=== PATIENT | female | born 1940 | race African-American/Black ===

== ENCOUNTER 2017-08-18 15:37 | Inpatient (IN) | payer MEDICARE, MEDICAID ==
[~2017-08-18] VITALS: Ht 160 cm; Wt 55.9 kg
[2017-08-18] MEDS ORDERED: LISI-186 PO (15:44)
[2017-08-18] MEDS ORDERED: METF500T4 PO (15:44)
[2017-08-18] MEDS ORDERED: GLIP5TAB12 PO (15:44)
[2017-08-18] MEDS ORDERED: SODIUM CHLORIDE 0.9% 1,000 ML IV ONE (15:54)
[2017-08-18] MEDS ORDERED: MORPHINE SULFATE 2 MG/ML CPJ (NOT FOR IM USE) IV ONE ×2 (16:00→20:45)
[2017-08-18] MEDS ORDERED: ONDANSETRON HCL 4MG/2ML VIAL IV ONE ×2 (16:00→21:00)
[2017-08-18 16:22] LABS: BASOPHILS % 0.6 % (0.0-2.0); EOSINOPHILS % 1.8 % (0.0-5.0); LYMPHOCYTES % 28.7 % (20.0-50.0); MEAN CORPUSCULAR HEMOGLOBIN 31.1 pg (28.0-32.0); MEAN CORPUSCULAR VOLUME 85.9 fL (81.0-99.0); MONOCYTES % 10.9 % (2.0-8.0); PLATELET 310 x1000/uL (130-400); RED BLOOD CELL COUNT 4.19 mill/uL (4.2-5.4); RED CELL DISTRIBUTION WIDTH 15.1 % (11.6-14.6)
[2017-08-18 16:24] LABS: CHLORIDE 88 mEq/L (98-107)
[2017-08-18 16:26] LABS: INR 1.1; PROTHROMBIN TIME 11.8 sec (9.4-11.6)
[2017-08-18 16:28] LABS: ETHANOL BLOOD < 10 mg/dL
[2017-08-18] MEDS ORDERED: MORPHINE SULFATE 4 MG/ML CPJ (NOT FOR IM USE) IV NR ×2 (17:00→21:15)
[2017-08-18 18:46] LABS: CLARITY URINE CLEAR (CLEAR); COLOR URINE YELLOW (YELLOW); KETONES URINE TRACE (NEGATIVE); LEUKOCYTE ESTERASE URINE 2+ (NEGATIVE); NITRITE URINE NEGATIVE (NEGATIVE); OCCULT BLOOD URINE NEGATIVE (NEGATIVE); PROTEIN URINE NEGATIVE (NEGATIVE); SPECIFIC GRAVITY URINE 1.017 (1.005-1.030)
[2017-08-18] MEDS ORDERED: ACETAMINOPHEN 325MG TABLET PO ONE (19:00)
[2017-08-18 19:04] LABS: *AMPHETAMINES SCREEN URINE NEGATIVE (NEGATIVE); *BARBITURATES SCREEN URINE NEGATIVE (NEGATIVE); *BENZODIAZEPINES SCREEN URINE NEGATIVE (NEGATIVE); *COCAINE SCREEN URINE NEGATIVE (NEGATIVE); METHADONE URINE SCREEN NEGATIVE (NEGATIVE); OPIATES URINE SCREEN NEGATIVE (NEGATIVE)
[2017-08-18 19:05] LABS: CANNABINOID URINE SCREEN NEGATIVE (NEGATIVE); PHENCYCLIDINE URINE SCREEN NEGATIVE (NEGATIVE)
[2017-08-18] MEDS ORDERED: LEVOFLOXACIN 750MG PREMIX 150 ML IV ONE (19:15)
[2017-08-18] MEDS ORDERED: POTASSIUM CHLORIDE 20MEQ TABLET SR PO ONE (19:30)
[2017-08-18] MEDS ORDERED: INSULIN REGULAR (HUMULIN R) 300UNITS/3ML SUBCUT ONE (19:30)
[2017-08-18] MEDS ORDERED: MAGNESIUM/ALUMINUM HYDROXIDE/SIMETHICONE 30ML UDC PO PRN (21:00)
[2017-08-18] MEDS ORDERED: ONDANSETRON HCL 4MG/2ML VIAL IV PRN (21:00)
[2017-08-18] MEDS ORDERED: LEVOFLOXACIN 500MG PREMIX 100 ML IV SCH (21:00)
[2017-08-18] MEDS ORDERED: DIPHENHYDRAMINE 50MG/ML VIAL IV PRN (21:00)
[2017-08-18] MEDS ORDERED: DEXTROSE 50% WATER 50ML SYRINGE IV PRN (21:00)
[2017-08-18] MEDS ORDERED: CLONIDINE 0.1MG TABLET PO PRN (21:00)
[2017-08-18 21:56] LABS: T4 FREE 0.57 ng/dL (0.76-1.46)
[2017-08-18 22:10] VITALS: BP 171/80
[2017-08-18] MEDS: BLOOD SUGAR DIAGNOSTIC STRIP TEST SCH (22:39)
[2017-08-18] MEDS: INSULIN LISPRO 100 UNITS/ML SUBCUT SCH (22:45)
[2017-08-18 23:00] VITALS: BP 171/80
[2017-08-18] MEDS: ACETAMINOPHEN 325MG TABLET PO PRN (23:19)
[2017-08-19] VITALS: BP 143/74
[2017-08-19] MEDS ORDERED: MAGNESIUM 2 G PREMIX 50 ML IV NR
[2017-08-19] MEDS ORDERED: THIAMINE HCL 100 MG in SODIUM CHLORIDE 0.9% 49 ML IV NR (02:00)
[2017-08-19] MEDS: SODIUM CHL 0.9% + KCL 20MEQ/L 1,000 ML IV SCH ×2 (02:05→10:00)
[2017-08-19 04:00] VITALS: BP 114/65
[2017-08-19 05:51] LABS: BASOPHILS % 0.4 % (0.0-2.0); EOSINOPHILS % 0.9 % (0.0-5.0); HEMATOCRIT. 36.1 % (36.0-48.0); HEMOGLOBIN. 12.5 g/dL (12.0-16.0); LYMPHOCYTES % 23.1 % (20.0-50.0); MEAN CORPUSCULAR HEMOGLOBIN 29.9 pg (28.0-32.0); MEAN CORPUSCULAR VOLUME 86.3 fL (81.0-99.0); MEAN PLATELET VOLUME 9.5 fl (7.4-10.4); MONOCYTES % 7.3 % (2.0-8.0); NEUTROPHILS % 68.3 % (40.0-76.0); PLATELET 287 x1000/uL (130-400); RED BLOOD CELL COUNT 4.19 mill/uL (4.2-5.4); RED CELL DISTRIBUTION WIDTH 15.1 % (11.6-14.6)
[2017-08-19 06:14] LABS: CHLORIDE 88 mEq/L (98-107)
[2017-08-19] MEDS: LEVOTHYROXINE SODIUM 100MCG TABLET PO SCH (06:41)
[2017-08-19] MEDS: BLOOD SUGAR DIAGNOSTIC STRIP TEST SCH ×4 (06:41→20:57)
[2017-08-19] MEDS: INSULIN LISPRO 100 UNITS/ML SUBCUT SCH ×4 (06:45→21:04)
[2017-08-19] MEDS ORDERED: LEVOTHYROXINE SODIUM 88MCG TABLET PO SCH (06:45)
[2017-08-19 08:00] VITALS: BP 121/58
[2017-08-19] MEDS: INSULIN GLARGINE UD 100 UNITS/ML SYR SUBCUT SCH (10:00)
[2017-08-19] MEDS ORDERED: MAGNESIUM 2 G PREMIX 50 ML IV SCH (11:00)
[2017-08-19] MEDS ORDERED: POTASSIUM CHLORIDE INJ 40 MEQ in DEXT 5% WATER 250 ML IV SCH (11:00)
[2017-08-19 12:00] VITALS: BP 117/61
[2017-08-19 15:05] LABS: PHOSPHORUS 2.7 mg/dL (2.5-4.9)
[2017-08-19 16:00] VITALS: BP 131/62
[2017-08-19] MEDS: SODIUM CHLORIDE 1000MG TABLET PO SCH (18:00)
[2017-08-19] MEDS ORDERED: LISI40TA4 PO (19:30)
[2017-08-19] MEDS ORDERED: METO-396 PO (19:30)
[2017-08-19] MEDS ORDERED: DILT240C92 PO ×2 (19:30)
[2017-08-19] MEDS ORDERED: GLIP5TAB12 PO (19:30)
[2017-08-19] MEDS ORDERED: PRAV80TA21 PO (19:30)
[2017-08-19] MEDS ORDERED: CHLO25TA27 PO (19:30)
[2017-08-19] MEDS ORDERED: METF10002 PO (19:30)
[2017-08-19] MEDS ORDERED: CHLO25TA27 GT (19:30)
[2017-08-19] MEDS ORDERED: ERGO500013 PO (19:30)
[2017-08-19] MEDS ORDERED: ASPI-1159 PO (19:30)
[2017-08-19] MEDS ORDERED: HYDR12.54 PO (19:30)
[2017-08-19 20:00] VITALS: BP 120/61
[2017-08-19] MEDS: LEVOFLOXACIN 250MG PREMIX 50 ML IV SCH (20:57)
[2017-08-20] VITALS: BP 95/47
[2017-08-20] MEDS: ACETAMINOPHEN 325MG TABLET PO PRN ×5 (00:04→22:53)
[2017-08-20 04:00] VITALS: BP 109/54
[2017-08-20] MEDS: INSULIN LISPRO 100 UNITS/ML SUBCUT SCH ×4 (06:16→22:15)
[2017-08-20] MEDS: BLOOD SUGAR DIAGNOSTIC STRIP TEST SCH ×4 (06:16→21:20)
[2017-08-20] MEDS: LEVOTHYROXINE SODIUM 100MCG TABLET PO SCH (06:16)
[2017-08-20] MEDS: SODIUM CHL 0.9% + KCL 20MEQ/L 1,000 ML IV SCH ×2 (06:16→23:45)
[2017-08-20 07:55] LABS: CHLORIDE 95 mEq/L (98-107)
[2017-08-20 08:00] VITALS: BP 144/75
[2017-08-20] MEDS: SODIUM CHLORIDE 1000MG TABLET PO SCH ×3 (08:03→17:40)
[2017-08-20 08:05] LABS: PHOSPHORUS 2.2 mg/dL (2.5-4.9)
[2017-08-20] MEDS ORDERED: BRIM15DR2 EACHEYE (10:17)
[2017-08-20 12:00] VITALS: BP 149/66
[2017-08-20] MEDS: INSULIN GLARGINE UD 100 UNITS/ML SYR SUBCUT SCH (12:38)
[2017-08-20] MEDS ORDERED: MAGNESIUM 2 G PREMIX 50 ML IV NR (15:30)
[2017-08-20 16:00] VITALS: BP 148/73
[2017-08-20] MEDS ORDERED: POTASSIUM PHOS,M-BASIC-D-BASIC 30 MMOL in DEXT 5% WATER 500 ML IV NR (16:00)
[2017-08-20] MEDS: METFORMIN HCL 500MG TABLET PO SCH (17:40)
[2017-08-20] MEDS ORDERED: THIAMINE HCL 100 MG in SODIUM CHLORIDE 0.9% 49 ML IV NR (18:00)
[2017-08-20 20:00] VITALS: BP 127/57
[2017-08-20] MEDS: LEVOFLOXACIN 250MG PREMIX 50 ML IV SCH (21:19)
[2017-08-21] VITALS: BP 132/87
[2017-08-21] MEDS: ACETAMINOPHEN 325MG TABLET PO PRN ×4 (03:21→23:59)
[2017-08-21 04:00] VITALS: BP 137/71
[2017-08-21 05:51] LABS: BASOPHILS % 0.7 % (0.0-2.0); EOSINOPHILS % 3.4 % (0.0-5.0); HEMATOCRIT. 38.8 % (36.0-48.0); HEMOGLOBIN. 13.4 g/dL (12.0-16.0); LYMPHOCYTES % 36.3 % (20.0-50.0); MEAN CORPUSCULAR HEMOGLOBIN 30.1 pg (28.0-32.0); MEAN PLATELET VOLUME 9.2 fl (7.4-10.4); MONOCYTES % 10.3 % (2.0-8.0); NEUTROPHILS % 49.3 % (40.0-76.0); PLATELET 304 x1000/uL (130-400); RED BLOOD CELL COUNT 4.46 mill/uL (4.2-5.4); RED CELL DISTRIBUTION WIDTH 15.5 % (11.6-14.6)
[2017-08-21] MEDS: BLOOD SUGAR DIAGNOSTIC STRIP TEST SCH ×4 (06:03→21:00)
[2017-08-21] MEDS: METFORMIN HCL 500MG TABLET PO SCH ×2 (06:10→17:48)
[2017-08-21] MEDS: INSULIN LISPRO 100 UNITS/ML SUBCUT SCH ×4 (06:12→21:00)
[2017-08-21] MEDS: LEVOTHYROXINE SODIUM 100MCG TABLET PO SCH (06:26)
[2017-08-21 07:29] LABS: CHLORIDE 91 mEq/L (98-107)
[2017-08-21 07:34] LABS: PHOSPHORUS 3.8 mg/dL (2.5-4.9)
[2017-08-21 08:00] VITALS: BP 121/67
[2017-08-21] MEDS: SODIUM CHLORIDE 1000MG TABLET PO SCH ×3 (09:46→17:48)
[2017-08-21] MEDS: INSULIN GLARGINE UD 100 UNITS/ML SYR SUBCUT SCH (09:48)
[2017-08-21] MEDS ORDERED: LEVOFLOXACIN 250MG TABLET PO SCH (11:00)
[2017-08-21 12:00] VITALS: BP 134/77
[2017-08-21] MEDS ORDERED: MAGNESIUM 2 G PREMIX 50 ML IV SCH (13:00)
[2017-08-21 16:00] VITALS: BP 146/81
[2017-08-21 20:00] VITALS: BP_SYST 117; BP_SYST 173; BP_DIAS 59; BP_DIAS 90
[2017-08-21 20:38] LABS: AMMONIA 14 uMol/L (<32)
[2017-08-21 20:45] LABS: CREATINE KINASE 219 IU/L (26-192)
[2017-08-22] VITALS (7 sets, daily range): BP systolic 101–158; BP diastolic 65–88
[2017-08-22 06:04] LABS: BASOPHILS % 0.8 % (0.0-2.0); EOSINOPHILS % 3.5 % (0.0-5.0); HEMATOCRIT. 39.2 % (36.0-48.0); HEMOGLOBIN. 13.8 g/dL (12.0-16.0); LYMPHOCYTES % 42.9 % (20.0-50.0); MEAN CORPUSCULAR HEMOGLOBIN 30.6 pg (28.0-32.0); MEAN CORPUSCULAR VOLUME 87.2 fL (81.0-99.0); MEAN PLATELET VOLUME 9.2 fl (7.4-10.4); MONOCYTES % 10.8 % (2.0-8.0); PLATELET 302 x1000/uL (130-400); RED CELL DISTRIBUTION WIDTH 15.6 % (11.6-14.6)
[2017-08-22] MEDS: BLOOD SUGAR DIAGNOSTIC STRIP TEST SCH ×3 (06:45→16:45)
[2017-08-22 06:57] LABS: CHLORIDE 98 mEq/L (98-107)
[2017-08-22] MEDS: METFORMIN HCL 500MG TABLET PO SCH ×2 (06:59→18:20)
[2017-08-22] MEDS: LEVOTHYROXINE SODIUM 100MCG TABLET PO SCH (07:03)
[2017-08-22] MEDS: INSULIN LISPRO 100 UNITS/ML SUBCUT SCH ×3 (07:04→17:15)
[2017-08-22] MEDS ORDERED: THIAMINE HCL 100MG TABLET PO SCH (09:00)
[2017-08-22] MEDS: SODIUM CHLORIDE 1000MG TABLET PO SCH ×3 (09:30→18:20)
[2017-08-22] MEDS: ACETAMINOPHEN 325MG TABLET PO PRN (09:30)
[2017-08-22] MEDS: INSULIN GLARGINE UD 100 UNITS/ML SYR SUBCUT SCH (11:57)
== END 2017-08-22 20:33 | DRG 637 ==
LOC: ER 15:37 → 5WST 19:16 → EDBEDREQ 19:16 → EDBEDREQTM 19:16 → ENRESERV 20:17 → 5WST 22:36
PROVIDERS: ADMIT Internal Medicine; ATTEND Internal Medicine
DX: E11.65 Type 2 diabetes mellitus with hyperglycemia (principal); G93.40 Encephalopathy, unspecified; M62.82 Rhabdomyolysis; N39.0 Urinary tract infection, site not specified; E83.42 Hypomagnesemia; E87.1 Hypo-osmolality and hyponatremia; F10.10 Alcohol abuse, uncomplicated; E87.6 Hypokalemia; E03.9 Hypothyroidism, unspecified; F10.20 Alcohol dependence, uncomplicated; I10 Essential (primary) hypertension; Z82.49 Family history of ischemic heart disease and other diseases of the circulatory system; Z83.3 Family history of diabetes mellitus; Z79.899 Other long term (current) drug therapy; Z88.0 Allergy status to penicillin
CPT/HCPCS: 36415; 70450; 70551; 71045; 80048; 80053; 80305; 81003; 82140; 82550; 82962; 83036; 83735; 83880; 84100; 84439; 84443; 84481; 84484; 85025; 85610; 87040; 92523; 92610; 93005; 93970; 97116; 97162; 97166; 97530; G0482; J1200; J1815; J1956; J2270; J2405; J3411; J3475; J3480; J3490; J7030; J7050; J7060

== ENCOUNTER 2017-08-22 20:45 | Inpatient (IN) | payer MEDICARE, MEDICAID ==
[~2017-08-22] VITALS: Ht 160 cm; Wt 55.9 kg
[~2017-08-22 20:45] MED LIST: ASPI-1159 PO; BRIM15DR2 EACHEYE; CHLO25TA27 GT; CHLO25TA27 PO; DILT240C92 PO; ERGO500013 PO; GLIP5TAB12 PO; HYDR12.54 PO; LISI-186 PO; LISI40TA4 PO; METF10002 PO; METF500T4 PO; METO-396 PO; PRAV80TA21 PO
[2017-08-22 21:00] VITALS: BP 111/60
[2017-08-22] MEDS ORDERED: MAGNESIUM/ALUMINUM HYDROXIDE/SIMETHICONE 30ML UDC PO PRN (21:30)
[2017-08-22] MEDS ORDERED: CLONIDINE 0.1MG TABLET PO PRN (21:30)
[2017-08-22] MEDS ORDERED: DEXTROSE 50% WATER 50ML SYRINGE IV PRN (21:30)
[2017-08-22] MEDS: INSULIN LISPRO 100 UNITS/ML SUBCUT SCH (23:30)
[2017-08-22] MEDS: BLOOD SUGAR DIAGNOSTIC STRIP TEST SCH (23:45)
[2017-08-22] MEDS: ACETAMINOPHEN 325MG TABLET PO PRN (23:50)
[2017-08-23 04:07] VITALS: BP 111/60
[2017-08-23 06:39] LABS: EOSINOPHILS % 2.7 % (0.0-5.0); HEMATOCRIT. 39.4 % (36.0-48.0); HEMOGLOBIN. 13.6 g/dL (12.0-16.0); LYMPHOCYTES % 39.9 % (20.0-50.0); MEAN CORPUSCULAR HEMOGLOBIN 30.3 pg (28.0-32.0); MEAN CORPUSCULAR VOLUME 87.6 fL (81.0-99.0); MEAN PLATELET VOLUME 9.2 fl (7.4-10.4); MONOCYTES % 9.8 % (2.0-8.0); NEUTROPHILS % 46.6 % (40.0-76.0); PLATELET 322 x1000/uL (130-400); RED BLOOD CELL COUNT 4.49 mill/uL (4.2-5.4); RED CELL DISTRIBUTION WIDTH 15.4 % (11.6-14.6)
[2017-08-23] MEDS: BLOOD SUGAR DIAGNOSTIC STRIP TEST SCH ×4 (07:15→21:12)
[2017-08-23 08:00] VITALS: BP 106/67
[2017-08-23] MEDS: THIAMINE HCL 100MG TABLET PO SCH (08:30)
[2017-08-23] MEDS: SODIUM CHLORIDE 1000MG TABLET PO SCH ×3 (08:30→17:40)
[2017-08-23] MEDS: METFORMIN HCL 500MG TABLET PO SCH ×2 (08:30→17:40)
[2017-08-23] MEDS: LEVOTHYROXINE SODIUM 100MCG TABLET PO SCH (08:30)
[2017-08-23] MEDS: INSULIN LISPRO 100 UNITS/ML SUBCUT SCH ×4 (08:38→21:28)
[2017-08-23 09:26] LABS: CHLORIDE 97 mEq/L (98-107)
[2017-08-23] MEDS: ACETAMINOPHEN 325MG TABLET PO PRN ×2 (09:58→18:59)
[2017-08-23] MEDS: INSULIN GLARGINE UD 100 UNITS/ML SYR SUBCUT SCH (10:18)
[2017-08-23 15:04] LABS: CLARITY URINE CLEAR (CLEAR); COLOR URINE YELLOW (YELLOW); KETONES URINE TRACE (NEGATIVE); LEUKOCYTE ESTERASE URINE NEGATIVE (NEGATIVE); NITRITE URINE NEGATIVE (NEGATIVE); OCCULT BLOOD URINE NEGATIVE (NEGATIVE); PH URINE 6.5 (4.5-8.0); PROTEIN URINE NEGATIVE (NEGATIVE); SPECIFIC GRAVITY URINE 1.025 (1.005-1.030)
[2017-08-23 19:31] LABS: AMMONIA < 10 uMol/L (<32)
[2017-08-23 19:35] LABS: T4 FREE 0.88 ng/dL (0.76-1.46)
[2017-08-23 20:00] VITALS: BP 131/51
[2017-08-23] MEDS: QUETIAPINE FUMARATE 25MG TABLET PO SCH (21:12)
[2017-08-24] MEDS: ACETAMINOPHEN 325MG TABLET PO PRN ×2 (05:15→14:39)
[2017-08-24] MEDS: LEVOTHYROXINE SODIUM 100MCG TABLET PO SCH (06:07)
[2017-08-24] MEDS: BLOOD SUGAR DIAGNOSTIC STRIP TEST SCH ×4 (06:07→20:18)
[2017-08-24] MEDS: INSULIN LISPRO 100 UNITS/ML SUBCUT SCH ×4 (06:11→20:50)
[2017-08-24 08:00] VITALS: BP 102/57
[2017-08-24 08:13] LABS: BASOPHILS % 1.1 % (0.0-2.0); EOSINOPHILS % 3.1 % (0.0-5.0); HEMATOCRIT. 37.7 % (36.0-48.0); HEMOGLOBIN. 13.1 g/dL (12.0-16.0); LYMPHOCYTES % 34.5 % (20.0-50.0); MEAN CORPUSCULAR HEMOGLOBIN 30.3 pg (28.0-32.0); MEAN CORPUSCULAR VOLUME 87.1 fL (81.0-99.0); MEAN PLATELET VOLUME 8.6 fl (7.4-10.4); MONOCYTES % 10.7 % (2.0-8.0); NEUTROPHILS % 50.6 % (40.0-76.0); PLATELET 299 x1000/uL (130-400); RED BLOOD CELL COUNT 4.33 mill/uL (4.2-5.4); RED CELL DISTRIBUTION WIDTH 15.5 % (11.6-14.6)
[2017-08-24 08:35] LABS: CHLORIDE 97 mEq/L (98-107)
[2017-08-24] MEDS: MULTIVITAMINS,THER W-MINERALS TABLET PO SCH (08:35)
[2017-08-24] MEDS: SODIUM CHLORIDE 1000MG TABLET PO SCH ×3 (08:36→18:12)
[2017-08-24] MEDS: FOLIC ACID 1MG TABLET PO SCH (08:36)
[2017-08-24] MEDS: METFORMIN HCL 500MG TABLET PO SCH ×2 (08:36→17:30)
[2017-08-24] MEDS: THIAMINE HCL 100MG TABLET PO SCH (08:36)
[2017-08-24 08:42] LABS: PHOSPHORUS 3.4 mg/dL (2.5-4.9)
[2017-08-24 08:43] LABS: LDL CHOLESTEROL 30 mg/dL (5-100)
[2017-08-24 08:44] LABS: CREATINE KINASE 122 IU/L (26-192)
[2017-08-24 08:46] LABS: HDL CHOLESTEROL 108 mg/dL (40-59)
[2017-08-24 08:55] LABS: FOLIC ACID (FOLATE) SERUM 9.9 ng/mL (>5.38)
[2017-08-24] MEDS: INSULIN GLARGINE UD 100 UNITS/ML SYR SUBCUT SCH (10:03)
[2017-08-24] MEDS ORDERED: NON FORMULARY PATIENT HOME MED EA XX SCH (14:15)
[2017-08-24] MEDS: EYE OP SCH (16:50)
[2017-08-24] MEDS: BRIMONIDINE 0.15% OP SCH (16:50)
[2017-08-24] MEDS ORDERED: BRIMONIDINE 0.2% OPHTH DROPS 5ML BOTHEYE SCH (17:00)
[2017-08-24 20:00] VITALS: BP 113/48
[2017-08-24] MEDS: QUETIAPINE FUMARATE 25MG TABLET PO SCH (20:17)
[2017-08-25] MEDS: BLOOD SUGAR DIAGNOSTIC STRIP TEST SCH ×4 (06:02→20:38)
[2017-08-25] MEDS: LEVOTHYROXINE SODIUM 100MCG TABLET PO SCH (06:02)
[2017-08-25] MEDS: INSULIN LISPRO 100 UNITS/ML SUBCUT SCH ×4 (06:34→20:38)
[2017-08-25 08:00] VITALS: BP 112/62
[2017-08-25] MEDS: SODIUM CHLORIDE 1000MG TABLET PO SCH ×3 (08:55→16:20)
[2017-08-25] MEDS: FOLIC ACID 1MG TABLET PO SCH (08:55)
[2017-08-25] MEDS: BRIMONIDINE 0.15% OP SCH ×3 (08:55→16:24)
[2017-08-25] MEDS: EYE OP SCH ×3 (08:55→16:24)
[2017-08-25] MEDS: METFORMIN HCL 500MG TABLET PO SCH ×2 (08:56→16:20)
[2017-08-25] MEDS: MULTIVITAMINS,THER W-MINERALS TABLET PO SCH (08:56)
[2017-08-25] MEDS: THIAMINE HCL 100MG TABLET PO SCH (08:56)
[2017-08-25] MEDS: INSULIN GLARGINE UD 100 UNITS/ML SYR SUBCUT SCH (09:27)
[2017-08-25] MEDS: CYANOCOBALAMIN 1000MCG/ML VIAL IM SCH (11:51)
[2017-08-25] MEDS: MAGNESIUM OXIDE 400MG TABLET PO SCH ×2 (11:51→20:38)
[2017-08-25] MEDS: ACETAMINOPHEN 325MG TABLET PO PRN ×2 (11:58→18:09)
[2017-08-25 20:00] VITALS: BP 96/47
[2017-08-25 20:30] VITALS: BP 114/65
[2017-08-25] MEDS: QUETIAPINE FUMARATE 25MG TABLET PO SCH (20:38)
[2017-08-26] MEDS: LEVOTHYROXINE SODIUM 100MCG TABLET PO SCH (06:11)
[2017-08-26] MEDS: BLOOD SUGAR DIAGNOSTIC STRIP TEST SCH ×2 (06:36→12:09)
[2017-08-26] MEDS: INSULIN LISPRO 100 UNITS/ML SUBCUT SCH ×2 (06:36→12:35)
[2017-08-26 08:00] VITALS: BP 107/64
[2017-08-26] MEDS ORDERED: TRIAMCINOLONE ACETONIDE 40MG/ML 1ML VIAL IM NR (08:15)
[2017-08-26] MEDS ORDERED: DEXAMETHASONE 4MG/ML 1ML VIAL IM NR (08:15)
[2017-08-26] MEDS ORDERED: LIDOCAINE HCL 2% JELLY 5ML TOP ONE (08:15)
[2017-08-26] MEDS: MULTIVITAMINS,THER W-MINERALS TABLET PO SCH (08:35)
[2017-08-26] MEDS: THIAMINE HCL 100MG TABLET PO SCH (08:35)
[2017-08-26] MEDS: SODIUM CHLORIDE 1000MG TABLET PO SCH ×2 (08:35→12:34)
[2017-08-26] MEDS: MAGNESIUM OXIDE 400MG TABLET PO SCH (08:35)
[2017-08-26] MEDS: FOLIC ACID 1MG TABLET PO SCH (08:35)
[2017-08-26] MEDS: METFORMIN HCL 500MG TABLET PO SCH (08:35)
[2017-08-26] MEDS: CYANOCOBALAMIN 1000MCG/ML VIAL IM SCH (08:36)
[2017-08-26] MEDS: ACETAMINOPHEN 325MG TABLET PO PRN (08:36)
[2017-08-26] MEDS: EYE OP SCH ×2 (08:38→12:34)
[2017-08-26] MEDS: BRIMONIDINE 0.15% OP SCH ×2 (08:38→12:34)
[2017-08-26] MEDS ORDERED: LIDOCAINE HCL/PF 1% 10 MG/ML 5ML VIAL IJ NR (09:00)
[2017-08-26] MEDS ORDERED: BUPIVACAINE HCL/PF 0.5% (5MG/ML) 30ML INFIL NR (09:00)
[2017-08-26] MEDS: INSULIN GLARGINE UD 100 UNITS/ML SYR SUBCUT SCH (10:43)
[2017-08-26 11:53] VITALS: BP 107/64
[2017-08-26] MEDS ORDERED: ACETAMINOPHEN 325MG TABLET PO PRN (13:00)
== END 2017-08-26 15:10 | disposition home health service (06) | DRG 92 ==
PROVIDERS: ADMIT Physical Medicine & Rehabilitation Spinal Cord Injury Medicine; ATTEND Internal Medicine
PROC: 3E0U33Z Introduction of Anti-inflammatory into Joints, Percutaneous Approach (ICD-10-PCS; principal; 2017-08-26)
PROC: 3E0U33Z Introduction of Anti-inflammatory into Joints, Percutaneous Approach (ICD-10-PCS; 2017-08-26)
PROC: 3E0U3BZ Introduction of Anesthetic Agent into Joints, Percutaneous Approach (ICD-10-PCS; 2017-08-26)
PROC: 3E0U3BZ Introduction of Anesthetic Agent into Joints, Percutaneous Approach (ICD-10-PCS; 2017-08-26)
PROC: 3E0133Z Introduction of Anti-inflammatory into Subcutaneous Tissue, Percutaneous Approach (ICD-10-PCS; 2017-08-26)
PROC: 3E0133Z Introduction of Anti-inflammatory into Subcutaneous Tissue, Percutaneous Approach (ICD-10-PCS; 2017-08-26)
DX: G92 Toxic encephalopathy (principal); M62.82 Rhabdomyolysis; E11.42 Type 2 diabetes mellitus with diabetic polyneuropathy; F05 Delirium due to known physiological condition; E87.1 Hypo-osmolality and hyponatremia; B35.1 Tinea unguium; I10 Essential (primary) hypertension; E03.9 Hypothyroidism, unspecified; R53.81 Other malaise; R26.9 Unspecified abnormalities of gait and mobility; M79.609 Pain in unspecified limb; F06.31 Mood disorder due to known physiological condition with depressive features; F06.8 Other specified mental disorders due to known physiological condition; M25.572 Pain in left ankle and joints of left foot; M25.571 Pain in right ankle and joints of right foot; M72.2 Plantar fascial fibromatosis; L60.3 Nail dystrophy; R20.0 Anesthesia of skin; R26.2 Difficulty in walking, not elsewhere classified; F10.20 Alcohol dependence, uncomplicated; Z88.0 Allergy status to penicillin; Z79.4 Long term (current) use of insulin; Z79.899 Other long term (current) drug therapy; G72.89 Other specified myopathies
CPT/HCPCS: 36415; 80048; 80053; 80061; 81003; 82140; 82270; 82306; 82550; 82607; 82728; 82746; 82962; 83036; 83735; 84100; 84134; 84439; 84443; 84481; 84630; 85025; 87086; 92523; 92610; 93970; 97112; 97116; 97162; 97167; 97530; 97535; G0515; J1100; J1815; J3301; J3420; J3490